=== PATIENT | female | born 1930 | race Caucasian/White ===

== ENCOUNTER → 2017-09-05 | Outpatient (CLI) | payer OTHER ==
[~2017-09-05] MED LIST: ACET-1138 PO; GLC/500 PO; GLIM2TAB2 PO; NAPR1TAB9 PO; TRIA37.5 PO
--- NOTE | 2017-09-05 12:27 | DIAGNOSTIC IMAGING REPORT ---
L ANKLE MIN 3 VIEWS ROUTINE CLINICAL HISTORY: 87 years-old Female presenting with ANKLE JOINT PAIN FOOT INJURY. TECHNIQUE: Frontal, mortise, and lateral views of left ankle were obtained. COMPARISON: None. FINDINGS: Soft tissues of the ankle are diffusely edematous. Evidence of a mildly displaced transversely oriented fracture of the medial malleolus with 3 mm of displacement of the distal fracture fragment. There is suggestion of periosteal reaction at this site, which could indicate a subacute injury. Obliquely oriented fracture of the fibula at the level of the syndesmosis. No widening of the ankle mortise along the lateral aspect. Osteopenia contributes to poor visualization of fracture planes. No gross evidence of a posterior malleolus fracture. Atherosclerosis. IMPRESSION: Stage IV supination external rotation injury pattern (Jonas B) with presumed disruption of the posteroinferior tibiofibular ligament as no radiographic evidence of a posterior malleolar fracture is noted. Electronically signed by: Shabbir Sun M.D. 09/05/2017 12:25 PM Dictated Date/Time: 09/05/2017 12:22 PM
--- NOTE | 2017-09-05 12:31 | DIAGNOSTIC IMAGING REPORT ---
L FOOT MIN 3 VIEWS ROUTINE CLINICAL HISTORY: 87 years-old Female presenting with ANKLE JOINT PAIN FOOT INJURY. TECHNIQUE: Frontal, oblique, and lateral views of the left foot were obtained. COMPARISON: None. FINDINGS: Diffuse soft tissue edema noted. Ankle fracture better characterized on dedicated ankle radiographs osteopenia limits evaluation for nondisplaced fracture. Allowing for this, no acute fracture or malalignment of the foot is evident. Prominent enthesophyte along the medial aspect of the base of the distal phalanx of the first toe. Mild degenerative changes noted at the distal interphalangeal joints. IMPRESSION: 1. Osteopenia limits evaluation for nondisplaced fracture. 2. No acute osseous injury of the foot. 3. Diffuse soft tissue swelling. 4. Please see separately dictated ankle radiographs for details of the malleoli fracture. Electronically signed by: Shabbir Sun M.D. 09/05/2017 12:29 PM Dictated Date/Time: 09/05/2017 12:28 PM
== END | disposition home or self-care (01) ==
LOC: C.RADPV 11:58
PROVIDERS: ATTEND Nurse Practitioner
DX: M25.579 Pain in unspecified ankle and joints of unspecified foot (principal); S99.929A Unspecified injury of unspecified foot, initial encounter; X58.XXXA Exposure to other specified factors, initial encounter

== ENCOUNTER → 2017-09-21 | Day surgery (SDC) | payer OTHER ==
[2017-09-07 13:48] VITALS: Ht 162.6 cm; Wt 77.3 kg
--- NOTE | 2017-09-14 11:13 | PAT Medication Instructions ---
Service Date Sep 14, 2017. Current Home Medication List Acetaminophen (Tylenol Extra Strength), 1-2 TAB PO Q6H PRN for Pain Glimepiride (Glimepiride), 1 TAB PO QAM Triamterene/Hctz (Dyazide 37.5MG/25MG), 1 TAB PO QAM Medication Instructions For Your Scheduled Surgery Cephalexin (to be completed prior to surgery per patient) - Hold the following medications the morning of surgery: Glimepiride (Glimepiride), 1 TAB PO QAM Triamterene/Hctz (Dyazide 37.5MG/25MG), 1 TAB PO QAM - Take the following medications the morning of surgery with a sip of water: Acetaminophen (Tylenol Extra Strength), 1-2 TAB PO Q6H PRN for Pain (okay to take up to 4 hours prior to surgery if needed) - Take the following medications as scheduled the night before surgery: Acetaminophen (Tylenol Extra Strength), 1-2 TAB PO Q6H PRN for Pain (if needed) If you have any questions please call us at [phone] or [phone] or [phone]
[2017-09-14 13:44] LABS: BUN/CREATININE RATIO 20.1 (10-20); CALCIUM 9.3 mg/dl (8.5-10.1); CREATININE 1.4 mg/dl (0.60-1.20); POTASSIUM 3.6 mmol/L (3.5-5.1)
[2017-09-14 13:47] LABS: PARTIAL THROMBOPLASTIN RATIO 1.1; PROTHROMBIN TIME (PATIENT) 10.7 SECONDS (9.0-12.0)
[2017-09-14 14:10] LABS: HEMATOCRIT 37.8 % (37-47); MEAN CELL VOLUME 93.6 fL (80-100); MEAN CORPUSCULAR HEMOGLOBIN 30.7 pg (25-34); MEAN CORPUSCULAR HGB CONC 32.8 g/dl (32-36); MEAN PLATELET VOLUME 10.8 fL (7.4-10.4); PLATELET COUNT 130 K/uL (130-400); RED BLOOD COUNT 4.04 M/uL (4.2-5.4); WHITE BLOOD COUNT 5.65 K/uL (4.8-10.8)
--- NOTE | 2017-09-20 10:27 | HISTORY & PHYSICAL EXAMINATION ---
DATE OF ADMISSION: CHIEF COMPLAINT: Working diagnosis of a fracture bimalleolar left ankle with moderate to significant displacement. HISTORY OF PRESENT ILLNESS: Sybil is a delightful young lady, diabetic. She had suffered a fall injury about 2-3 weeks ago, presented to my office with her fracture of the ankle. When she came to the office, her fracture blisters were too significant and completely unsafe to provide surgical intervention. They improved over the last 2 weeks, I feel she has improved stably enough for surgical intervention in the soft tissue envelope will be appropriate for repair. PAST MEDICAL HISTORY: Positive for hypertension, diabetes mellitus. PAST SURGICAL HISTORY: Unsure. ALLERGIES: SULFA. MEDICATIONS: Including Glimepiride for diabetes, triamterene daily along what medication for pain. REVIEW OF SYSTEMS: She is alert and oriented. Mentation normal. She denies any head abnormalities. Denies any chest pain currently, shortness of breath, palpitations. No asthma, wheezing. No nausea, vomiting. She does have diabetes mellitus. Her major complaint is her left lower extremity. PHYSICAL EXAMINATION: GENERAL: She is alert, oriented, pleasant woman. She is in moderate distress, communicates well. SKIN: Skin is intact and improved the left ankle that was questionable 2 to 3 weeks ago. NEUROLOGIC: Loss of sensation in a stocking glove diabetes type distribution. VITAL SIGNS: Blood pressure 130/80, pulse of 80, respiration rate 16, temperature afebrile. HEENT: Normal. CARDIAC: Normal S1, S2, no S3. LUNGS: Clear to auscultation. No rales, rhonchi or wheezing. ABDOMEN: Soft, nontender. EXTREMITIES: Her left lower extremity is deformed, but skin is intact. Significant loss of range of motion. IMPRESSION: 1. Fracture, left ankle. 2. Diabetes mellitus. DISPOSITION: She is scheduled as an outpatient for open reduction internal fixation of the left ankle. We will be doing this at [facility]. I anticipate the surgery to take approximately 60 minutes. She will return home after wearing the cast hopefully on to recovery. NATHAN
[~2017-09-21] VITALS: Ht 162.6 cm; Wt 77.3 kg
[~2017-09-21] MED LIST changes: +ACETAMINOPHEN 1000 MG/100 ML IV IV ONE; +ATROPINE SULFATE 0.1 MG/ML 5ML SYR IV PRN; +BUPIVACAINE/EPINEPHRINE 0.5% MPF 1:200,000 30 ML VIAL ONE; +CEFTRIAXONE SOD 2 GM VIAL IV ONE; +CEFTRIAXONE SOD INJ 2,000 MG in DEXTROSE 5% ADD-VANTAGE 50ML 50 ML IV ONE; +EpHEDrine SULFATE INJ 50 MG/ML AMP IV PRN; +FENTANYL CITRATE INJ 50 MCG/1 ML 2 ML VIAL ONE; -GLC/500 PO; +HYDR-5688 PO; +HYDROmorphone INJ 1 MG/ML SYR IV PRN; +LABETALOL HCL IV 5 MG/ML 20ML IV ONE; +LABETALOL HCL IV 5 MG/ML 20ML IV PRN; +LACTATED RINGER'S 1000ML 1,000 ML IV SCH; +LIDOCAINE HCL 2% 2 ML VIAL (20MG/ML) ONE; -NAPR1TAB9 PO; +ONDANSETRON INJ 2 MG/ML 2 ML VIAL IV PRN; +ONDANSETRON INJ 2 MG/ML 2 ML VIAL ONE; +OXYCODONE HCL IR 5 MG TAB (IMMEDIATE RELEASE) PO PRN; +OXYCODONE/ACETAMINOPHEN 5-325 TAB PO PRN; +PROPOFOL IV EMULSION 10 MG/ML 20 ML VIAL IV ONE; +ROPIVACAINE 0.5% 5 MG/ML 30 ML VIAL ONE; +SODIUM CHLORIDE 0.9% 1000ML 1,000 ML IV SCH
--- NOTE | 2017-09-21 07:58 | History & Physical Bridge - SC ---
H&P Re-Evaluation Bridge Note: I have examined the patient, reviewed the History & Physical and in the interval since the performance of the History & Physical I have noted the following changes of clinical significance: No changes noted
--- NOTE | 2017-09-21 10:01 | [facility] Operative Report ---
Operative Report Operative Date Sep 21, 2017. Pre-Operative Diagnosis Left Medial Malleolus Closed Fracture Post-Operative Diagnosis same as preop Procedure(s) Performed Left Ankle Open Reduction Internal Fixation Surgeon Dr. Dejesus Automation Application Engineer Surgeon(s) CARLOS Huber Estimated Blood Loss 10ML Findings bi mal ankle fracture Specimens none per surgeon Complication(s) None Disposition Recovery Room / PACU I attest to the content of the Intraoperative Record and any orders documented therein. Any exceptions are noted below.
--- NOTE | 2017-09-21 10:03 | Discharge Instructions-SurgCtr ---
Discharge Instructions Date of Service Sep 21, 2017. Visit Reason for Visit: Left Medial Malleolus Closed Fracture Discharge Discharge Diagnosis / Problem: SAME ABOVE Discharge Goals Goal(s): Decrease discomfort, Improve function Activity Recommendations Activity Limitations: as noted below Lifting Limitations: until after follow-up appointment Exercise/Sports Limitations: until after follow-up appointment Shower/Bathe: keep incision dry Weightbearing Status: Left weightbearing (as tolerated) Anesthesia . Post Anesthesia Instructions: If you have had General Anesthesia or IV Sedation: * Do not drive today. * Resume driving when surgeon permits. * Do not make important decisions or sign legal documents today. * Call surgeon for: 1. Temperature elevations greater than 101 degrees F. 2. Uncontrollable pain. 3. Excessive bleeding. 4. Persistent nausea and vomiting. 5. Medication intolerance (nausea, vomiting or rash). * For nausea and vomiting use only clear liquids such as: tea, soda, bouillon until nausea subsides, then gradually increase diet as tolerated. * If you have any concerns or questions, call your surgeon's office. If physician is unavailable and it is an emergency, call 911 or go to the nearest emergency room. . Instructions / Follow-Up Instructions / Follow-Up MEDICATIONS: * Resume previous medications unless instructed otherwise by your surgeon. * Always take pain medication on a full stomach or with food to avoid upset stomach. * Do not drink alcohol or drive while taking narcotics. * Ibuprofen or Tylenol may be taken if narcotic not needed. SPECIAL CARE INSTRUCTIONS: __ None _X_ Keep extremity elevated and iced x 48 hours; apply ice 20-30 minutes 8-10 times/day. May remove at night. __ Crutches __ May discard when able __ Brace/Post-op shoe __ 24 hrs/day __ Remove at night _X_ Dressing _X_ Maintain until seen in office, may shower with plastic over site __ Remove dressings in 24-48 hours and then may shower __ Cover incisions with band-aids after showering __ Do not remove steri-strips LEFT WEIGHT BEARING TOLERATED WITH WALKER ONLY Call physician if chills or temperature rises above 102 degrees or pain unrelieved by prescribed pain medications. Office [phone] Diet Recommendations Home Diet: resume previous diet Procedures Procedures Performed: Left Ankle Open Reduction Internal Fixation Pending Studies Studies pending at discharge: no Medical Emergencies . Who to Call and When: Medical Emergencies: If at any time you feel your situation is an emergency, please call 911 immediately. . Non-Emergent Contact Non-Emergency issues call your: Primary Care Provider . . "Provider Documentation" section prepared by Chapito Fraser. .
[2017-09-21] MEDS: FENTANYL CITRATE INJ 50 MCG/1 ML 2 ML VIAL IV PRN ×4 (10:10→10:59)
--- NOTE | 2017-09-21 11:01 | OPERATIVE REPORT ---
DATE OF OPERATION: 09/21/2017 PREOPERATIVE DIAGNOSIS: Bimalleolar fracture, left ankle. POSTOPERATIVE DIAGNOSIS: Same. PROCEDURE: Includes open reduction and internal fixation, bimalleolar fracture of left ankle. SURGEON: Aryan Dejesus DO RESOURCE CONSERVATION SPECIALIST: Chapito Fraser PA-C ANESTHETIC: LMA. COMPLICATIONS: Zero. BLOOD LOSS: Less than 5 mL. DESCRIPTION OF PROCEDURE: The patient was brought to the operating room at the surgical center. A tourniquet applied to the left upper thigh. She was scrubbed first with Betadine and prepped with ChloraPrep as well. She had significant skin issues that were under control. We draped her sterile. We first made a lateral based skin incision over the fibula, dissecting the soft tissue, came right down in a subperiosteal dissection. We were able to reduce the fibula in anatomic position. I used a 7-hole semitubular plate on the lateral aspect. The obliquity of the angle was too much for a lag screw technique. I was pleased with the reduction. We then also did 2 syndesmotic screws. I felt with the gross instability of the ankle, the syndesmosis needed to be stabilized. Two screws were placed lateral to medial in the syndesmosis. The reduction was satisfactory. We then made a skin incision in the medial aspect, reduced the medial malleolar fragment in anatomic position. This was transfixed with 2 screws, 14 mm in length. They were partially threaded cancellous screws. On the lateral side, there was a combination of cancellous screws 4.0 and 3.5 cortical screws. We irrigated and closed in layers with 2-0 Vicryl, 3-0 nylon, sterile dressings and a substantial short leg cast applied as well. The patient was extubated. The patient returned to PACU stable. Sponge and needle count correct at the close. There were no complications. I attest to the content of the Intraoperative Record and any orders documented therein. Any exception s are noted below.
[2017-09-21 11:24] VITALS: TEMP 36.4
--- NOTE | 2017-09-21 11:55 | Anesthesia Progress Nt - [facility] ---
Anesthesia Post Op Note Date & Time Sep 21, 2017 at 11:55 Vital Signs Pain Intensity: 0 Vital Signs Past 12 Hours Date Time Temp Pulse Resp B/P (MAP) Pulse Ox O2 Delivery O2 Flow Rate FiO2 09/21/17 11:24 36.4 75 16 135/73 (93) 95 Room Air 09/21/17 11:11 149/72 09/21/17 11:08 36.8 80 16 148/71 98 Room Air 09/21/17 11:07 79 15 09/21/17 11:07 79 15 97 09/21/17 11:06 148/71 09/21/17 11:04 76 12 09/21/17 11:04 72 12 99 09/21/17 11:01 157/76 09/21/17 10:59 82 15 09/21/17 10:59 80 15 94 09/21/17 10:56 137/70 09/21/17 10:54 86 10 98 09/21/17 10:54 85 10 09/21/17 10:51 171/87 09/21/17 10:49 85 15 09/21/17 10:49 85 15 97 09/21/17 10:46 191/86 09/21/17 10:44 85 13 09/21/17 10:44 85 13 99 09/21/17 10:41 178/80 09/21/17 10:39 76 16 99 09/21/17 10:39 84 16 09/21/17 10:37 183/91 09/21/17 10:36 161/111 09/21/17 10:34 83 12 99 09/21/17 10:34 83 12 09/21/17 10:33 85 14 99 09/21/17 10:33 83 14 09/21/17 10:31 190/78 09/21/17 10:28 84 20 09/21/17 10:28 84 20 99 09/21/17 10:26 179/89 09/21/17 10:23 76 18 100 09/21/17 10:23 80 18 09/21/17 10:21 163/96 09/21/17 10:18 82 12 96 09/21/17 10:18 82 12 09/21/17 10:16 165/67 09/21/17 10:13 75 16 93 09/21/17 10:13 81 16 09/21/17 10:12 171/84 09/21/17 10:08 75 17 100 09/21/17 10:08 79 17 09/21/17 10:06 117/94 09/21/17 10:03 77 22 09/21/17 10:03 82 22 100 09/21/17 10:01 164/79 09/21/17 09:58 36.7 91 12 149/77 97 Diffusion Mask 6 09/21/17 09:58 80 149/77 95 09/21/17 09:58 80 09/21/17 06:37 36.9 83 16 154/63 (93) 97 Room Air Notes Mental Status: alert / awake / arousable, participated in evaluation Pt Amnestic to Procedure: Yes Nausea / Vomiting: adequately controlled Pain: adequately controlled Airway Patency, RR, SpO2: stable & adequate BP & HR: stable & adequate Hydration State: stable & adequate Anesthetic Complications: no major complications apparent
[2017-09-21 12:04] VITALS: BP 126/73; PULSE 75; O2SAT 96
== END | disposition home or self-care (01) ==
LOC: X.SURG 06:13
PROVIDERS: ATTEND Orthopaedic Surgery Orthopaedic Surgery of the Spine
DX: S82.842A Displaced bimalleolar fracture of left lower leg, initial encounter for closed fracture (principal); W19.XXXA Unspecified fall, initial encounter; I10 Essential (primary) hypertension; E11.9 Type 2 diabetes mellitus without complications; Z79.899 Other long term (current) drug therapy

== ENCOUNTER → 2017-10-11 | Outpatient (CLI) | payer OTHER ==
[~2017-10-11] MED LIST changes: -ACETAMINOPHEN 1000 MG/100 ML IV IV ONE; -ATROPINE SULFATE 0.1 MG/ML 5ML SYR IV PRN; -BUPIVACAINE/EPINEPHRINE 0.5% MPF 1:200,000 30 ML VIAL ONE; -CEFTRIAXONE SOD 2 GM VIAL IV ONE; -CEFTRIAXONE SOD INJ 2,000 MG in DEXTROSE 5% ADD-VANTAGE 50ML 50 ML IV ONE; -EpHEDrine SULFATE INJ 50 MG/ML AMP IV PRN; -FENTANYL CITRATE INJ 50 MCG/1 ML 2 ML VIAL ONE; -HYDROmorphone INJ 1 MG/ML SYR IV PRN; -LABETALOL HCL IV 5 MG/ML 20ML IV ONE; -LABETALOL HCL IV 5 MG/ML 20ML IV PRN; -LACTATED RINGER'S 1000ML 1,000 ML IV SCH; -LIDOCAINE HCL 2% 2 ML VIAL (20MG/ML) ONE; -ONDANSETRON INJ 2 MG/ML 2 ML VIAL IV PRN; -ONDANSETRON INJ 2 MG/ML 2 ML VIAL ONE; -OXYCODONE HCL IR 5 MG TAB (IMMEDIATE RELEASE) PO PRN; -OXYCODONE/ACETAMINOPHEN 5-325 TAB PO PRN; -PROPOFOL IV EMULSION 10 MG/ML 20 ML VIAL IV ONE; -ROPIVACAINE 0.5% 5 MG/ML 30 ML VIAL ONE; -SODIUM CHLORIDE 0.9% 1000ML 1,000 ML IV SCH
[2017-10-11 12:43] LABS: BASO % 0.4 %; BASO ABS # 0.02 K/uL (0-0.2); COMPLETE YES; EOS % 2.4 %; HEMATOCRIT 40.1 % (37-47); IG% 0.2 %; LYMPH % 32.8 %; LYMPH ABS # 1.66 K/uL (1.2-3.4); MEAN CELL VOLUME 95.2 fL (80-100); MEAN CORPUSCULAR HEMOGLOBIN 30.9 pg (25-34); MEAN CORPUSCULAR HGB CONC 32.4 g/dl (32-36); MEAN PLATELET VOLUME 11.5 fL (7.4-10.4); MONO % 7.9 %; NEUT % 56.3 %; PLATELET COUNT 108 K/uL (130-400); RED BLOOD COUNT 4.21 M/uL (4.2-5.4); WHITE BLOOD COUNT 5.06 K/uL (4.8-10.8)
[2017-10-11 13:18] LABS: ALT/SGPT 23 U/L (12-78); BLOOD UREA NITROGEN 31 mg/dl (7-18); BUN/CREATININE RATIO 21.2 (10-20); CALCIUM 9.3 mg/dl (8.5-10.1); CARBON DIOXIDE 25 mmol/L (21-32); CHLORIDE 107 mmol/L (98-107); CREATININE 1.45 mg/dl (0.60-1.20); GLUCOSE 219 mg/dl (70-99); POTASSIUM 3.6 mmol/L (3.5-5.1); SODIUM 142 mmol/L (136-145)
[2017-10-11 13:20] LABS: ESTIMATED AVERAGE GLUCOSE 160 mg/dl; HA1C FLAG Normal (Normal)
[2017-10-11 13:21] LABS: ALB/GLOB RATIO 0.9 (0.9-2); ALKALINE PHOSPHATASE 121 U/L (45-117); AST/SGOT 26 U/L (15-37)
== END | disposition home or self-care (01) ==
LOC: C.LABPVFM 14:16
PROVIDERS: ATTEND Family Medicine
DX: I10 Essential (primary) hypertension (principal); E11.9 Type 2 diabetes mellitus without complications; D69.6 Thrombocytopenia, unspecified; W19.XXXA Unspecified fall, initial encounter

== ENCOUNTER → 2017-10-17 | Outpatient (CLI) | payer OTHER ==
--- NOTE | 2017-10-17 11:56 | DIAGNOSTIC IMAGING REPORT ---
RENAL ULTRASOUND HISTORY: N18.3 Chronic kidney disease, stage III (moderate) COMPARISON: None. FINDINGS: Right kidney: 8.0 cm. No hydronephrosis. Moderate cortical atrophy with slight increased cortical echogenicity. Left kidney: 8.8 cm. No hydronephrosis. Moderate cortical atrophy with slight increased cortical echogenicity. Bladder: No bladder wall thickening. The bilateral ureteral jets were identified. IMPRESSION: Moderate bilateral cortical renal atrophy with slight increased cortical echogenicity suggestive of medical renal disease. Electronically signed by: Tate Benavides M.D. 10/17/2017 11:54 AM Dictated Date/Time: 10/17/2017 11:53 AM
== END | disposition home or self-care (01) ==
LOC: C.ULTR 11:05
PROVIDERS: ATTEND Family Medicine
DX: N18.3 Chronic kidney disease, stage 3 (moderate) (principal); N26.1 Atrophy of kidney (terminal)

== ENCOUNTER → 2018-04-04 | Outpatient (CLI) | payer OTHER ==
[~2018-04-04] MED LIST changes: -HYDR-5688 PO
[2018-04-04 12:46] LABS: ALBUMIN 3.4 gm/dl (3.4-5.0); ALT/SGPT 22 U/L (12-78); AST/SGOT 24 U/L (15-37); BLOOD UREA NITROGEN 28 mg/dl (7-18); CALCIUM 8.8 mg/dl (8.5-10.1); CARBON DIOXIDE 25 mmol/L (21-32); CREATININE 1.35 mg/dl (0.60-1.20); GLUCOSE 172 mg/dl (70-99); POTASSIUM 3.6 mmol/L (3.5-5.1); SODIUM 138 mmol/L (136-145)
[2018-04-04 12:49] LABS: ALKALINE PHOSPHATASE 76 U/L (45-117); TOTAL PROTEIN 7.8 gm/dl (6.4-8.2)
[2018-04-04 13:06] LABS: HEMOGLOBIN A1C 7.2 % (4.5-5.6)
== END | disposition home or self-care (01) ==
LOC: C.LABPVFM 09:10
PROVIDERS: ATTEND Internal Medicine Nephrology
DX: I10 Essential (primary) hypertension (principal); E11.9 Type 2 diabetes mellitus without complications; S82.899A Other fracture of unspecified lower leg, initial encounter for closed fracture; X58.XXXA Exposure to other specified factors, initial encounter

== ENCOUNTER → 2018-04-10 | Outpatient (CLI) | payer OTHER | END | disposition home or self-care (01) | LOC: C.LABPVFM 17:01 | PROVIDERS: ATTEND Internal Medicine Nephrology | DX: I10 Essential (primary) hypertension (principal) ==